=== PATIENT | female | born 1980 | race Two or more races ===

== ENCOUNTER 2018-01-13 17:55 | Emergency (ER) | payer MEDICAID ==
[~2018-01-13] VITALS: Ht 162.6 cm; Wt 114.3 kg
[2018-01-13 18:04] VITALS: BP 115/62
[2018-01-13] MEDS ORDERED: LIDOCAINE VISCOUS 2% 15ML UD PO ONE (20:45)
== END 2018-01-13 22:00 | disposition home or self-care (01) ==
LOC: ER 17:56
DX: T23.001A Burn of unspecified degree of right hand, unspecified site, initial encounter (principal); X08.8XXA Exposure to other specified smoke, fire and flames, initial encounter; Y93.89 Activity, other specified; Y92.89 Other specified places as the place of occurrence of the external cause; Y99.8 Other external cause status